=== PATIENT | male | born 1955 | race Caucasian/White ===

== ENCOUNTER 2016-12-09 08:50 | Inpatient (IN) | payer OTHER ==
[~2016-12-09] VITALS: Ht 177.8 cm; Wt 72.3 kg
[~2016-12-09 08:50] MED LIST: DALIRESP500 MCG PO; FLOMAX0.4 MG PO; LIPITOR40 MG PO; LO-DOSE ASPIRIN81 M2 PO; NICODERM CQ1 EAC2 TD; PERCOCET 7.51 TABLET PO; POTASSIUM CHLO20 ME1 PO; SYMBICORT60 INHALAT IH; TOPROL XL50 MG PO
[2016-12-09 10:07] LABS: MCH 30.4 PG (29.0-34.0); MCHC 32.3 G/DL (30.0-36.0); MCV 94.1 FL (86-99); MEAN PLAT.VOLUME 9.3 uM^3 (9.0-12.4); PLATELET COUNT 230 K/uL (156-360); RBC DIS.WIDTH-CV 13.8 % (11.8-14.6); RBC DIS.WIDTH-SD 48.2 % (39-53); RED BLOOD COUNT 4.25 M/uL (4.00-5.50); WHITE BLOOD COUNT 8.9 K/uL (4.1-10.2)
[2016-12-09 10:20] LABS: CHLORIDE 106 mEq/L (99-109); POTASSIUM 4.2 mEq/L (3.7-5.4); SODIUM 140 mEq/L (136-147)
[2016-12-09 10:22] LABS: GLUCOSE 106 mg/dL (70-99)
[2016-12-09 10:23] LABS: ANION GAP 9 MEQ/L (2-14)
[2016-12-09 10:24] VITALS: BP 145/74
[2016-12-09 10:26] LABS: GFR ESTIMATE (CALCULATED) > 59 mL/min/; UREA NITROGEN (BUN) 7 mg/dL (9-23)
[2016-12-09 16:30] VITALS: BP 174/81
[2016-12-09 23:13] VITALS: BP 114/61
[2016-12-10 04:00] VITALS: BP 120/60
[2016-12-10 05:39] LABS: HEMATOCRIT 35.9 % (38.0-50.0); MCH 30.2 PG (29.0-34.0); MCHC 32.6 G/DL (30.0-36.0); MCV 92.5 FL (86-99); MEAN PLAT.VOLUME 9.3 uM^3 (9.0-12.4); PLATELET COUNT 210 K/uL (156-360); RBC DIS.WIDTH-CV 13.8 % (11.8-14.6); RBC DIS.WIDTH-SD 46.5 % (39-53); RED BLOOD COUNT 3.88 M/uL (4.00-5.50); WHITE BLOOD COUNT 10.2 K/uL (4.1-10.2)
[2016-12-10 06:03] LABS: ANION GAP 5 MEQ/L (2-14); CHLORIDE 106 MEQ/L (99-109); GFR ESTIMATE (CALCULATED) > 59 mL/min/; GLUCOSE 132 mg/dL (70-99); MAGNESIUM 1.9 mg/dl (1.3-2.7); POTASSIUM 4.3 MEQ/L (3.7-5.4); SAMPLE HEMOLYSIS CHECK 0; SAMPLE ICTERIC CHECK 0; SAMPLE LIPEMIA CHECK 0; SODIUM 137 MEQ/L (136-147); UREA NITROGEN (BUN) 8 mg/dL (9-23)
[2016-12-10 07:39] VITALS: BP 146/70
[2016-12-10 07:44] VITALS: BP 118/59
[2016-12-10 15:22] VITALS: BP 129/63
[2016-12-10 16:00] VITALS: BP 129/63
[2016-12-10 23:22] VITALS: BP 109/52
[2016-12-11 04:00] VITALS: BP 128/61
[2016-12-11 07:00] LABS: HEMATOCRIT 32.7 % (38.0-50.0); MCH 30.5 PG (29.0-34.0); MCHC 31.8 G/DL (30.0-36.0); MCV 95.9 FL (86-99); MEAN PLAT.VOLUME 10.3 uM^3 (9.0-12.4); PLATELET COUNT 166 K/uL (156-360); RBC DIS.WIDTH-CV 14.2 % (11.8-14.6); RBC DIS.WIDTH-SD 50.2 % (39-53); RED BLOOD COUNT 3.41 M/uL (4.00-5.50); WHITE BLOOD COUNT 7.3 K/uL (4.1-10.2)
[2016-12-11 07:19] LABS: ANION GAP 7 MEQ/L (2-14); CHLORIDE 104 MEQ/L (99-109); GFR ESTIMATE (CALCULATED) > 59 mL/min/; GLUCOSE 114 mg/dL (70-99); MAGNESIUM 1.9 mg/dl (1.3-2.7); POTASSIUM 3.6 MEQ/L (3.7-5.4); SAMPLE HEMOLYSIS CHECK 0; SAMPLE ICTERIC CHECK 0; SAMPLE LIPEMIA CHECK 0; SODIUM 140 MEQ/L (136-147); UREA NITROGEN (BUN) 8 mg/dL (9-23)
[2016-12-11 07:55] VITALS: BP 146/64
[2016-12-11 12:25] VITALS: BP 140/65
[2016-12-11 16:55] VITALS: BP 176/68
[2016-12-11 19:35] VITALS: BP 159/75
[2016-12-11 23:16] VITALS: BP 128/62
[2016-12-12 03:32] VITALS: BP 137/74
[2016-12-12 06:49] LABS: HEMATOCRIT 30.2 % (38.0-50.0); MCH 30.6 PG (29.0-34.0); MCHC 32.5 G/DL (30.0-36.0); MCV 94.4 FL (86-99); MEAN PLAT.VOLUME 9.7 uM^3 (9.0-12.4); PLATELET COUNT 171 K/uL (156-360); RBC DIS.WIDTH-CV 13.9 % (11.8-14.6); RBC DIS.WIDTH-SD 48.3 % (39-53)
[2016-12-12 07:04] VITALS: BP 122/62
[2016-12-12 07:13] LABS: ANION GAP 6 MEQ/L (2-14); CHLORIDE 105 MEQ/L (99-109); GFR ESTIMATE (CALCULATED) > 59 mL/min/; GLUCOSE 95 mg/dL (70-99); POTASSIUM 4.2 MEQ/L (3.7-5.4); SAMPLE HEMOLYSIS CHECK 0; SAMPLE ICTERIC CHECK 0; SAMPLE LIPEMIA CHECK 0; SODIUM 140 MEQ/L (136-147); UREA NITROGEN (BUN) 5 mg/dL (9-23)
[2016-12-12 11:30] VITALS: BP 128/64
[2016-12-12 16:49] VITALS: BP 145/68
[2016-12-12 19:04] VITALS: BP 122/68
[2016-12-12 22:45] VITALS: BP 131/64
[2016-12-13 02:30] VITALS: BP 134/61
[2016-12-13 06:06] LABS: HEMATOCRIT 31.4 % (38.0-50.0); MCH 30.7 PG (29.0-34.0); MCHC 32.8 G/DL (30.0-36.0); MCV 93.7 FL (86-99); MEAN PLAT.VOLUME 9.6 uM^3 (9.0-12.4); PLATELET COUNT 190 K/uL (156-360); RBC DIS.WIDTH-CV 13.6 % (11.8-14.6); RBC DIS.WIDTH-SD 46.8 % (39-53); RED BLOOD COUNT 3.35 M/uL (4.00-5.50); WHITE BLOOD COUNT 8.9 K/uL (4.1-10.2)
[2016-12-13 06:31] LABS: ANION GAP 5 MEQ/L (2-14); CHLORIDE 102 MEQ/L (99-109); GFR ESTIMATE (CALCULATED) > 59 mL/min/; GLUCOSE 99 mg/dL (70-99); POTASSIUM 3.9 MEQ/L (3.7-5.4); SAMPLE HEMOLYSIS CHECK 0; SAMPLE ICTERIC CHECK 0; SAMPLE LIPEMIA CHECK 0; SODIUM 137 MEQ/L (136-147); UREA NITROGEN (BUN) 4 mg/dL (9-23)
[2016-12-13 07:13] VITALS: BP 127/60
[2016-12-13 10:41] VITALS: BP 134/69
[2016-12-13 16:53] VITALS: BP 122/65
[2016-12-13 19:16] VITALS: BP 131/67
[2016-12-13 23:28] VITALS: BP 128/70
[2016-12-14 03:18] VITALS: BP 140/64
[2016-12-14 06:33] LABS: HEMATOCRIT 32.2 % (38.0-50.0); MCH 29.9 PG (29.0-34.0); MCHC 32.6 G/DL (30.0-36.0); MCV 91.7 FL (86-99); MEAN PLAT.VOLUME 9.8 uM^3 (9.0-12.4); PLATELET COUNT 206 K/uL (156-360); RBC DIS.WIDTH-CV 13.5 % (11.8-14.6); RED BLOOD COUNT 3.51 M/uL (4.00-5.50)
[2016-12-14 06:34] LABS: WHITE BLOOD COUNT 12.3 K/uL (4.1-10.2)
[2016-12-14 06:56] LABS: ANION GAP 8 MEQ/L (2-14); CHLORIDE 101 MEQ/L (99-109); GFR ESTIMATE (CALCULATED) > 59 mL/min/; GLUCOSE 121 mg/dL (70-99); SAMPLE HEMOLYSIS CHECK 0; SAMPLE ICTERIC CHECK 0; SAMPLE LIPEMIA CHECK 0; SODIUM 139 MEQ/L (136-147); UREA NITROGEN (BUN) 4 mg/dL (9-23)
[2016-12-14 07:12] VITALS: BP 136/64
[2016-12-14 13:19] VITALS: BP 120/63
[2016-12-14 15:00] VITALS: BP 127/74
[2016-12-14 23:28] VITALS: BP 106/55
[2016-12-15 07:16] VITALS: BP 139/67
[2016-12-15 08:37] LABS: HEMATOCRIT 33.2 % (38.0-50.0); MCH 29.9 PG (29.0-34.0); MCHC 32.2 G/DL (30.0-36.0); MCV 92.7 FL (86-99); MEAN PLAT.VOLUME 9.5 uM^3 (9.0-12.4); PLATELET COUNT 234 K/uL (156-360); RBC DIS.WIDTH-CV 13.2 % (11.8-14.6); RBC DIS.WIDTH-SD 44.5 % (39-53); RED BLOOD COUNT 3.58 M/uL (4.00-5.50)
[2016-12-15 08:39] LABS: WHITE BLOOD COUNT 7.4 K/uL (4.1-10.2)
[2016-12-15 08:57] LABS: ANION GAP 7 MEQ/L (2-14); CHLORIDE 104 MEQ/L (99-109); GFR ESTIMATE (CALCULATED) > 59 mL/min/; GLUCOSE 117 mg/dL (70-99); POTASSIUM 3.9 MEQ/L (3.7-5.4); SAMPLE HEMOLYSIS CHECK 0; SAMPLE ICTERIC CHECK 0; SAMPLE LIPEMIA CHECK 0; SODIUM 142 MEQ/L (136-147); UREA NITROGEN (BUN) 5 mg/dL (9-23)
[2016-12-15 15:34] VITALS: BP 110/61
[2016-12-16 00:04] VITALS: BP 141/69
[2016-12-16 06:37] LABS: HEMATOCRIT 31.3 % (38.0-50.0); MCH 30.1 PG (29.0-34.0); MCHC 32.6 G/DL (30.0-36.0); MCV 92.3 FL (86-99); MEAN PLAT.VOLUME 9.4 uM^3 (9.0-12.4); PLATELET COUNT 260 K/uL (156-360); RBC DIS.WIDTH-SD 43.8 % (39-53); RED BLOOD COUNT 3.39 M/uL (4.00-5.50)
[2016-12-16 07:06] LABS: ANION GAP 7 MEQ/L (2-14); CHLORIDE 105 MEQ/L (99-109); GFR ESTIMATE (CALCULATED) > 59 mL/min/; GLUCOSE 119 mg/dL (70-99); POTASSIUM 3.4 MEQ/L (3.7-5.4); SAMPLE HEMOLYSIS CHECK 0; SAMPLE ICTERIC CHECK 0; SAMPLE LIPEMIA CHECK 0; SODIUM 142 MEQ/L (136-147); UREA NITROGEN (BUN) 4 mg/dL (9-23)
[2016-12-16 07:26] VITALS: BP 151/73
[2016-12-16 15:55] VITALS: BP 158/74
[2016-12-16 19:00] VITALS: BP 133/78
[2016-12-17] VITALS: BP 140/77
[2016-12-17 04:00] VITALS: BP 142/78
[2016-12-17 07:08] LABS: HEMATOCRIT 31.1 % (38.0-50.0); MCH 30.3 PG (29.0-34.0); MCHC 32.8 G/DL (30.0-36.0); MCV 92.3 FL (86-99); MEAN PLAT.VOLUME 9.7 uM^3 (9.0-12.4); PLATELET COUNT 272 K/uL (156-360); RBC DIS.WIDTH-CV 12.7 % (11.8-14.6); RBC DIS.WIDTH-SD 43.3 % (39-53); RED BLOOD COUNT 3.37 M/uL (4.00-5.50); WHITE BLOOD COUNT 7.2 K/uL (4.1-10.2)
[2016-12-17 07:38] LABS: ANION GAP 8 MEQ/L (2-14); CHLORIDE 107 MEQ/L (99-109); GFR ESTIMATE (CALCULATED) > 59 mL/min/; GLUCOSE 111 mg/dL (70-99); POTASSIUM 3.7 MEQ/L (3.7-5.4); SAMPLE HEMOLYSIS CHECK 0; SAMPLE ICTERIC CHECK 0; SAMPLE LIPEMIA CHECK 0; SODIUM 143 MEQ/L (136-147); UREA NITROGEN (BUN) 4 mg/dL (9-23)
[2016-12-17 07:54] VITALS: BP 101/61
[2016-12-17] MEDS ORDERED: OXAYDO5 MG PO (10:07)
[2016-12-17 10:31] VITALS: BP 138/64
== END 2016-12-17 12:07 | disposition home or self-care (01) | DRG 331 ==
LOC: 2SOUTH 08:50 → 5EAST 09:30 → 2SOUTH 09:43 → 5EAST 15:55 → 2SOUTH 16:08 → 5EAST 12-17 12:07
PROVIDERS: Physician Assistant; Surgery
PROC: 0DTF0ZZ Resection of Right Large Intestine, Open Approach (ICD-10-PCS; principal; 2016-12-09)
DX: D12.2 Benign neoplasm of ascending colon (principal); I10 Essential (primary) hypertension; E78.5 Hyperlipidemia, unspecified; J44.9 Chronic obstructive pulmonary disease, unspecified; K21.9 Gastro-esophageal reflux disease without esophagitis; M19.90 Unspecified osteoarthritis, unspecified site; R63.4 Abnormal weight loss; F41.1 Generalized anxiety disorder; H93.19 Tinnitus, unspecified ear; R13.10 Dysphagia, unspecified; G47.30 Sleep apnea, unspecified; F32.9 Major depressive disorder, single episode, unspecified; Z72.0 Tobacco use; Z68.26 Body mass index [BMI] 26.0-26.9, adult; Z68.25 Body mass index [BMI] 25.0-25.9, adult; D72.829 Elevated white blood cell count, unspecified; Z68.22 Body mass index [BMI] 22.0-22.9, adult
CPT/HCPCS: 71020; 74177; 80048; 83735; 84100; 85027; 86900; 86901; 86920; 88309; 93005; 94640; 94640 76; 94667; 94668; 94799; 99202; J0131; J0330; J1100; J1170; J1335; J1885; J2175; J2250; J2270; J2405; J2543; J2550; J2710; J3010; J7050; S0028